=== PATIENT | female | born 1970 | race American Indian/Alaskan Native ===

== ENCOUNTER 2020-11-07 21:23 | Emergency (ER) | payer MEDICAID, OTHER ==
[2020-11-07 22:21] VITALS: BP 163/88
[2020-11-07 23:25] LABS: Bilirubin,Urine NEG (Negative); Blood,Urine SM (Negative); Color,Urine Yellow (Yellow); Mucus,Urine 2+ /HPF; Protein,Urine <15 mg/dL mg/dL (Negative); Urobilinogen,Urine < 2.0 mg/dL (<2.0)
[2020-11-08] MEDS ORDERED: KETOROLAC 30 MG/1 ML INJ IM ONE (00:14)
[2020-11-08] MEDS ORDERED: ACETAMINOPHEN 500 MG TAB PO ONE (00:14)
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
[2020-11-08 01:15] LABS: HCG Qualitative,Urine Negative (Negative)
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
== END 2020-11-08 02:20 | disposition home or self-care (01) ==
LOC: ED 21:23
DX: N39.0 Urinary tract infection, site not specified (principal); M54.5 Low back pain; F17.200 Nicotine dependence, unspecified, uncomplicated; Z79.899 Other long term (current) drug therapy; V49.59XA Passenger injured in collision with other motor vehicles in traffic accident, initial encounter; Y92.410 Unspecified street and highway as the place of occurrence of the external cause; Y93.89 Activity, other specified; Y99.8 Other external cause status
CPT/HCPCS: 72131; 81001; 81025; 87086; 96372; 99284; J1885